=== PATIENT | female | born 1965 | race Caucasian/White ===

== ENCOUNTER 2017-09-07 08:01 | Emergency (ER) | payer OTHER ==
[2017-09-07 08:22] LABS: Bilirubin Negative (Negative); Blood, Urine Large (Negative); Glucose, Urine (Dipstick) Negative (Negative); Ketone, Urine Negative (Negative); Nitrite Negative (Negative); Protein, Urine (Dipstick) Negative (Neg-Trace); Urobilinogen 0.2 mg/dL (0.2-1.0)
[2017-09-07 08:33] LABS: Bacteria/HPF 1+ HPF (None Seen); Hyaline Casts/LPF 0-3 HYALINE CAST LPF (0-3 Hyaline); RBC/HPF 0-3 HPF (0-3)
[2017-09-07 08:34] LABS: Transitional Epithelial 0-3 HPF (0-3)
[2017-09-07] MEDS ORDERED: Ciprofloxacin 500 MG TAB ONE (09:12)
[2017-09-07] MEDS ORDERED: Phenazopyridine HCl 97.5 MG TABLET ONE ×2 (09:12→09:13)
== END 2017-09-07 09:22 | disposition home or self-care (01) ==
LOC: ERS 08:01
DX: N30.00 Acute cystitis without hematuria (principal); I25.10 Atherosclerotic heart disease of native coronary artery without angina pectoris; E78.5 Hyperlipidemia, unspecified; I10 Essential (primary) hypertension; M19.90 Unspecified osteoarthritis, unspecified site; I25.2 Old myocardial infarction; F41.9 Anxiety disorder, unspecified; F17.210 Nicotine dependence, cigarettes, uncomplicated
CPT/HCPCS: 81003; 81015; 87086; 99283

== ENCOUNTER 2018-02-19 00:04 | Observation (INO) | payer OTHER ==
[2018-02-19 00:44] LABS: #Basophils 0.1 thou/uL (0.0-0.2); #Eosinphils 0.2 thou/uL (0.0-0.7); #Lymphocytes 4.1 thou/uL (1.20-3.40); #Neutrophils 5.8 thou/uL (1.40-6.50); %Basophils 1.2 % (0.0-1.0); %Eosinophils 1.7 % (0.0-10.0); %Lymphocytes 36.4 % (21.0-51.0); %Monocytes 9.1 % (0.0-10.0); %Neutrophils 51.7 % (42.0-75.0); Hemoglobin 13.3 g/dL (12.0-16.0); Mean Corpuscular HGB CONC 33.7 g/dL (32.0-36.0); Mean Corpuscular Hemoglobin 32.5 pg (27.0-31.0); Mean Corpuscular Volume 96.4 fl (81.0-99.0); Mean Platelet Volume 6.9 fL (7.4-10.4); Platelet Count 339 thou/uL (130-400); RBC Distribution Width 11.5 % (11.5-14.5); Red Blood Cell (RBC) Count 4.09 mill/uL (4.20-5.40); White Blood Cell (WBC) Count 11.2 thou/uL (4.8-10.8)
[2018-02-19 01:07] LABS: ALT (SGPT) 31 U/L (8-55); AST (SGOT) 28 U/L (5-34); Albumin 4.2 g/dL (3.5-5.0); Alkaline Phosphatase 76 U/L (40-150); Anion Gap 12 mmol/L (10-20); BUN (Urea Nitrogen) 17 mg/dL (9.8-20.1); Bilirubin, Total 0.2 mg/dL (0.2-1.2); CK (CPK) 53 U/L (29-168); Calc. Creatinine Clearance 0 mL/min (70-130); Calcium 9.7 mg/dL (7.8-10.44); Carbon Dioxide 28 mmol/L (22-29); Chloride 102 mmol/L (98-107); Estimated GFR-MDRD 64; Globulin 3.1 g/dL (2.4-3.5); Glucose 86 mg/dL (70-105); Lipase 12 U/L (8-78); Potassium 3.8 mmol/L (3.5-5.1); Protein, Total 7.3 g/dL (6.0-8.3); Sodium 138 mmol/L (136-145)
[2018-02-19 01:09] LABS: CKMB 1.8 ng/mL (0-6.6); Troponin I Less than 0.010 ng/mL (< 0.028)
[2018-02-19] MEDS ORDERED: Nitroglycerin 2% Ointment 1 INCH/1 GM Packet ONE (04:48)
[2018-02-19 05:58] LABS: Troponin I 0.236 ng/mL (< 0.028)
[2018-02-19 06:37] VITALS: BMI 24.2
[2018-02-19] MEDS ORDERED: Nitroglycerin 0.4 MG TAB (25 Tab Bottle) PO PRN (07:40)
[2018-02-19] MEDS ORDERED: Acetaminophen 325 MG TAB PO PRN (07:40)
[2018-02-19] MEDS ORDERED: Bisacodyl 5 MG TAB PO PRN (07:40)
[2018-02-19 08:07] LABS: Cardiac Risk 4.6 (Less than 4.5)
--- NOTE | 2018-02-19 09:43 | RAD ---
CHEST 1 VIEW: HISTORY: Chest pain. COMPARISON: 04/13/17. FINDINGS: Cardiac silhouette magnified by projection. Pulmonary vasculature unremarkable. Mediastinum midline with aortic calcification. No lobar consolidation or evidence of pneumothorax. personnel monitor robinson ds overlie the chest. IMPRESSION: Atherosclerosis. No active cardiopulmonary abnormalities are demonstrated. POS: [facility]
--- NOTE | 2018-02-19 10:57 | HP ---
PRIMARY CARE PROVIDER: None. CHIEF COMPLAINT: Chest pain. HISTORY OF PRESENT ILLNESS: Ms. Harper is a pleasant 52-year-old lady who was seen at [facility] on 02/19/2018. She reports that she had coronary artery disease with stent emily cement 4 or 5 years ago. She stopped taking her medication 3 years ago. Over the last 2 weeks, she had left-sided chest pain, radiating to her jaw, dull, 10/10 at its worst, accompanied by shortness o f breath, diaphoresis, and clamminess, not accompanied by nausea. She came to the emergency room bec ause of ongoing symptoms. She reports that the chest pain is worse with movement, but not with deep breathing. She denies any cough. REVIEW OF SYSTEMS: All other systems reviewed and found to be negative. PAST MEDICAL HISTORY: Hypertension, coronary artery disease, dyslipidemia, arthritis, myocardial inf arction. PAST SURGICAL HISTORY: PCI with coronary stent at [facility] in 07/2012, left wrist s urgery and appendectomy. PSYCHIATRIC HISTORY: Anxiety. SOCIAL HISTORY: The patient reports occasional marijuana use, reports last use was one month ago, sm okes 15-20 cigarettes a day and drinks alcohol occasionally. FAMILY HISTORY: Significant for myocardial infarction in her grandfather. ALLERGIES: PENICILLIN. CURRENT MEDICATIONS: None. PHYSICAL EXAMINATION: GENERAL: Mr. Harper is awake and alert, not in acute distress. VITAL SIGNS: Blood pressure is 104/58, pulse is 82. She is breathing at rate of 18, and saturating 98% on room air. She is afebrile. EYES: No scleral icterus. No conjunctival pallor. ENT: Moist mucosal membranes. No oropharyngeal erythema or exudates. NECK: Supple, nontender, normal range of movement. Trachea is midline. RESPIRATORY: Accessory muscles of breathing are not active. Chest wall movements are symmetric bila terally. LUNGS: Clear to auscultation without wheeze, rhonchi or crepitations. CARDIOVASCULAR: S1 and S2 are heard, regular. Peripheral pulses palpable. No carotid bruit, no per icardial rub. ABDOMEN: Soft, nontender, bowel sounds are heard, no hepatomegaly, no splenomegaly. NEUROLOGIC: Cranial nerves II-XII intact. Deep tendon reflexes 2+. MUSCULOSKELETAL: Power is 5/5 in all 4 extremities. SKIN: She has extensive calluses over both feet. No rashes or subcutaneous nodules. LYMPHATIC: No cervical lymphadenopathy. PSYCHIATRIC: Normal mood, normal affect, patient is oriented to person, place, and time. DATABASE: Mr. Harper' labs and investigations were reviewed. I reviewed her electrocardiogram, wh ich shows normal sinus rhythm, no ST changes to suggest an acute coronary syndrome. I also reviewed her chest x-ray, which does not show any pulmonary infiltrates. She has a white count of 11,200, nor mal hemoglobin, normal platelet count, normal comprehensive metabolic profile, indeterminate troponin I of 0.190 trending down from 0.236 after trending up from less than 0.010. Lipase is normal. The triglycerides are elevated at 214, cholesterol is elevated 210. LDL cholesterol is 121. HDL cholest rozina is 46. ASSESSMENT AND PLAN: Mr. Harper is a pleasant 52-year-old lady who was seen at [facility] on 02/19/2018. Her problem list includes: 1. Chest pain: She will be admitted to the hospital on observation status for telemetry monitoring and stress test. Further management depending on outcome of the test. 2. Hypertension: The patient is currently not on any antihypertensives. Her blood pressure is actu ally on the low side. We will monitor vital signs and titrate antihypertensives as needed. 3. Dyslipidemia: Start statin. 4. Tobacco abuse: The patient has been counseled regarding tobacco cessation. We will start her on nicotine replacement therapy. 5. Recreational drug use: The patient has been counseled against recreational drug use. LEVEL OF RISK: High. LEVEL OF COMPLEXITY: High.
[2018-02-19] MEDS: Nicotine 21 MG PATCH TD SCH (11:21)
[2018-02-19] MEDS: Aspirin 325 MG TAB PO SCH (11:21)
[2018-02-20 04:48] LABS: #Basophils 0.1 thou/uL (0.0-0.2); #Eosinphils 0.2 thou/uL (0.0-0.7); #Monocytes 0.7 thou/uL (0.11-0.59); #Neutrophils 4.4 thou/uL (1.40-6.50); %Eosinophils 2.7 % (0.0-10.0); %Lymphocytes 35.6 % (21.0-51.0); %Monocytes 8.7 % (0.0-10.0); %Neutrophils 51.9 % (42.0-75.0); Hemoglobin 13.9 g/dL (12.0-16.0); Mean Corpuscular HGB CONC 32.5 g/dL (32.0-36.0); Mean Corpuscular Hemoglobin 31.7 pg (27.0-31.0); Mean Corpuscular Volume 97.6 fl (81.0-99.0); Mean Platelet Volume 7.9 fL (7.4-10.4); Platelet Count 308 thou/uL (130-400); RBC Distribution Width 11.4 % (11.5-14.5); Red Blood Cell (RBC) Count 4.38 mill/uL (4.20-5.40); White Blood Cell (WBC) Count 8.4 thou/uL (4.8-10.8)
[2018-02-20 05:20] LABS: Anion Gap 13 mmol/L (10-20); BUN (Urea Nitrogen) 13 mg/dL (9.8-20.1); Calc. Creatinine Clearance 89 mL/min (70-130); Calcium 9.3 mg/dL (7.8-10.44); Carbon Dioxide 22 mmol/L (22-29); Chloride 106 mmol/L (98-107); Estimated GFR-MDRD Greater than 90; Glucose 88 mg/dL (70-105); Potassium 4.1 mmol/L (3.5-5.1); Sodium 137 mmol/L (136-145)
[2018-02-20] MEDS: Aspirin 325 MG TAB PO SCH (08:21)
[2018-02-20] MEDS: Nicotine 21 MG PATCH TD SCH (08:21)
[2018-02-20] MEDS ORDERED: ISOVUE-370 76%-LOCM 1 ML ONE (09:48)
[2018-02-20] MEDS ORDERED: ADENOSINE 60 MG/20 ML VIAL ONE (09:51)
[2018-02-20 11:24] VITALS: BP 136/77; TEMP 97.7
--- NOTE | 2018-02-20 12:01 | NM ---
RADIONUCLIDE STRESS REST MYOCARDIAL PERFUSION SCAN WITH CT ATTENUATION CORRECTION AND SPECT IMAGING LEFT VENTRICULAR WALL MOTION EVALUATION AND EJECTION FRACTION: HISTORY: Chest pain. FINDINGS: Adenosine protocol was used. There is homogeneous uptake of radiotracer throughout the left ventricu lar myocardium. No focal perfusion defect or reversibility. QGS analysis of gated SPECT images show s no focal wall motion abnormalities. Left ventricular ejection fraction calculated at 71%. IMPRESSION: Normal myocardial perfusion scan. Normal left ventricular ejection fraction. POS: [facility]
[2018-02-20] MEDS ORDERED: Lorazepam 0.5 MG TAB PO SCH (14:00)
--- NOTE | 2018-02-20 18:48 | CT ---
CT ANGIOGRAM CHEST WITH CONTRAST: History: Evaluate for pulmonary embolism. Chest pain. Comparison: Chest radiograph same day. Technique: CT angiogram chest performed after the intravenous administration of contrast. 3D renderin g provided. FINDINGS: No proximal segmental pulmonary arterial filling defect. No cardiomegaly. Pulmonary trunk size is normal. No aneurysmal dilatation of the aorta. Visualized upper abdomen is unremarkable aside from atherosclerotic plaque of the aorta. No thoracic spine compression fracture. No rib fracture. Mild to moderate central lobular emphysematous changes. No mass. IMPRESSION: 1. No proximal segmental pulmonary arterial filling defect. 2. Moderate emphysema. 3. Subtle nodule in the posterior segment of the left lower lobe measuring up to [address] eura. Follow up CT in one year recommended. POS: [facility]
--- NOTE | 2018-02-20 22:30 | DIS ---
PRIMARY CARE PROVIDER: [facility]. DATE OF ADMISSION: 02/19/2018 DATE OF DISCHARGE: 02/20/2018 DISCHARGE DIAGNOSES: 1. Chest pain. 2. Dyslipidemia. 3. Lung nodule CONDITION OF PATIENT ON THE DAY OF DISCHARGE: Stable. I assessed Ms. Harper on the day of discharge. She reports that chest pain has improved. Vital signs are stable. S1 and S2 are heard, regular. Lungs are clear to auscultation bilaterally. DISCHARGE MEDICATIONS: Aspirin 81 mg daily, atorvastatin 10 mg daily. HOSPITAL COURSE: Ms. Harper is a pleasant 52-year-old lady, who was admitted to [facility] on 02/19/2018 for chest pain. Please refer to my history and physical note dated 02/19/2018 for further information. She was monitored on telemetry. She had a nuclear stress test, which was normal. Left ventricular ejection fraction was 71%. She also had a D-dimer that was less than 0.27. She was noncompliant with her medications, and has been advised to be compliant with her medications. She has also been advised to stop smoking. She has also been advised to follow up with a primary care provider in 3-5 days for management of her medical comorbidities as well as anxiety. She stated understanding of the importance of medication compliance, tobacco cessation and following up with primary care provider. On the day of discharge, she has white count 8400, hemoglobin 13.9, platelet count 308,000 and a normal Chem-7. During this hospitalization, she had triglycerides elevated at 214, cholesterol elevated at 210, LDL cholesterol 121 , and HDL cholesterol 46. Pt also had CT scan of chest. She did not have evidence of central pulmonary embolism but was found to have a 5mm lung nodule. She is advised to have repeat CT chest in 1 year through her primary care provider's office. Many thanks for allowing me to participate in your patient's care. Please feel free to contact me with any questions or concerns. DISCHARGE DESTINATION: Home. [facility]
== END 2018-02-20 19:41 | disposition home or self-care (01) ==
LOC: ERS 00:04 → 2SW 05:05
PROVIDERS: ADMIT Internal Medicine; ATTEND Internal Medicine
DX: R07.9 Chest pain, unspecified (principal); I25.10 Atherosclerotic heart disease of native coronary artery without angina pectoris; I10 Essential (primary) hypertension; E78.5 Hyperlipidemia, unspecified; M19.90 Unspecified osteoarthritis, unspecified site; I25.2 Old myocardial infarction; F17.210 Nicotine dependence, cigarettes, uncomplicated; F41.9 Anxiety disorder, unspecified; R91.1 Solitary pulmonary nodule; Z91.14 Patient's other noncompliance with medication regimen; Z88.0 Allergy status to penicillin; Z95.5 Presence of coronary angioplasty implant and graft
CPT/HCPCS: 36415; 71045; 71275; 78452; 80048; 80053; 80061; 82553; 83690; 84484; 85025; 85379; 93005; 93017; 94760; A9500; G0378; J0153

== ENCOUNTER 2018-08-16 17:40 | Emergency (ER) | payer OTHER ==
[2018-08-16] MEDS ORDERED: Ketorolac Tromethamine 30 MG/ML VIAL ONE (18:28)
[2018-08-16 19:05] LABS: #Basophils 0.1 thou/uL (0.0-0.2); #Eosinphils 0.1 thou/uL (0.0-0.7); #Lymphocytes 3.2 thou/uL (1.20-3.40); #Monocytes 0.8 thou/uL (0.11-0.59); #Neutrophils 7.5 thou/uL (1.40-6.50); %Basophils 1.1 % (0.0-1.0); %Eosinophils 0.8 % (0.0-10.0); %Lymphocytes 27.5 % (21.0-51.0); %Monocytes 7.1 % (0.0-10.0); %Neutrophils 63.5 % (42.0-75.0); Hemoglobin 12.9 g/dL (12.0-16.0); Mean Corpuscular Hemoglobin 32.2 pg (27.0-31.0); Mean Corpuscular Volume 97.6 fL (78.0-98.0); Mean Platelet Volume 8.5 fL (7.4-10.4); Platelet Count 377 thou/uL (130-400); RBC Distribution Width 11.7 % (11.5-14.5); White Blood Cell (WBC) Count 11.7 thou/uL (4.8-10.8)
[2018-08-16 19:22] LABS: Prothrombin Time 13.6 SEC (12.0-14.7)
[2018-08-16] MEDS ORDERED: Lorazepam 2 MG/ML VIAL ONE (20:46)
[2018-08-16] MEDS ORDERED: Morphine 2 MG/ML SYRINGE ONE (20:46)
[2018-08-16] MEDS ORDERED: Lorazepam 1 MG TAB ONE (20:47)
[2018-08-16 21:19] LABS: ALT (SGPT) 21 U/L (8-55); AST (SGOT) 26 U/L (5-34); Alkaline Phosphatase 88 U/L (40-150); Anion Gap 18 mmol/L (10-20); BUN (Urea Nitrogen) 10 mg/dL (9.8-20.1); Bilirubin, Total 0.3 mg/dL (0.2-1.2); Calc. Creatinine Clearance 0 mL/min (70-130); Calcium 9.9 mg/dL (7.8-10.44); Carbon Dioxide 20 mmol/L (22-29); Chloride 103 mmol/L (98-107); Estimated GFR-MDRD 87; Globulin 4.2 g/dL (2.4-3.5); Glucose 111 mg/dL (70-105); Potassium 4.1 mmol/L (3.5-5.1); Protein, Total 8.2 g/dL (6.0-8.3); Sodium 137 mmol/L (136-145)
--- NOTE | 2018-08-16 21:34 | RAD ---
PA AND LATERAL CHEST: 08/16/18 HISTORY: Right breast pain and swelling. The heart size and mediastinum are within normal limits. The lungs are clear of any infiltrative proc ess. No pulmonary nodules are identified. No bony findings. IMPRESSION: No active intrathoracic disease. Suggestion of some soft tissue swelling of the right breast is noted . POS: [facility]
--- NOTE | 2018-08-16 22:22 | ULT ---
ULTRASOUND RIGHT BREAST COMPLETE: 08/16/18 7:26 p.m. HISTORY: 53-year-old female with growing right breast mass for a long period of time, now painful presents to the emergency department. COMPARISON: No prior breast ultrasound. No recent mammograms are available for comparison. FINDINGS: There is a very large infiltrative hard mass occupying the upper 40% or half of the breast, from the 11 o'clock position to the 1 o'clock position, and from the nipple to 6 cm posterior and superior to the nipple. The entire mass cannot be measured because the extent of the lesion is greater than that of the transducer width. However, the largest region of shadowing hypoechoic component is measured as approximately 4.5 x 3.5 x 3 cm, but the measurements are imprecise because of ill-defined margins. Somewhat enlarged right axillary lymph node measuring approximately 2 x 1.3 cm. It has a fatty hilum, but one component of the nonfatty component is asymmetrically thickened. IMPRESSION: 1. BIRADS 0: Incomplete: Need Additional Imaging Evaluation and/or Prior Mammograms for Compari son 2. Very large mass in the upper aspect of the right breast, involving upper outer quadrant and u pper inner quadrant, highly suspicious for invasive breast cancer. 3. Recommend mammogram. 4. The mammogram should be obtained prior to breast biopsy. POS: [facility]
== END 2018-08-16 21:08 | disposition home or self-care (01) ==
LOC: ERS 17:40
DX: N63.0 Unspecified lump in unspecified breast (principal); I10 Essential (primary) hypertension; I25.10 Atherosclerotic heart disease of native coronary artery without angina pectoris; E78.5 Hyperlipidemia, unspecified; I25.2 Old myocardial infarction; F41.9 Anxiety disorder, unspecified; F17.210 Nicotine dependence, cigarettes, uncomplicated
CPT/HCPCS: 36415; 71046; 80053; 84484; 85025; 85610; 85730; 93005; 96374; 96375; J1885; J2060; J2270

== ENCOUNTER 2018-11-22 14:31 | Emergency (ER) | payer OTHER ==
[~2018-11-22 14:31] MED LIST: Iopamidol 370 76% 100 ML VIAL ONE
[2018-11-22] MEDS ORDERED: Ketorolac Tromethamine 30 MG/ML VIAL ONE (15:22)
[2018-11-22] MEDS ORDERED: diphenhydrAMINE 50 MG/ML VIAL ONE (15:22)
[2018-11-22] MEDS ORDERED: Metoclopramide HCl 10 MG/2 ML VIAL ONE (15:22)
[2018-11-22 15:31] LABS: Hemoglobin 12.8 g/dL (12.0-16.0); Mean Corpuscular HGB CONC 31.6 g/dL (32.0-36.0); Mean Corpuscular Hemoglobin 30.9 pg (27.0-31.0); Mean Corpuscular Volume 97.7 fL (78.0-98.0); Mean Platelet Volume 8.9 fL (7.4-10.4); Platelet Count 153 thou/uL (130-400); RBC Distribution Width 11.5 % (11.5-14.5); Red Blood Cell (RBC) Count 4.16 mill/uL (4.20-5.40); White Blood Cell (WBC) Count 9.9 thou/uL (4.8-10.8)
[2018-11-22 15:48] LABS: Band 12 % (5-11); Eosinophils 2 % (0-10); Lymphocytes 10 % (21-51); MDiff Complete? YES; Neutrophil 74 % (42-75); Platelet Morphology Comment Appears Adequate; RBC Morphology Normal; Reactive Lymphocytes 2 % (0-10)
[2018-11-22 15:54] LABS: ALT (SGPT) 36 U/L (8-55); AST (SGOT) 30 U/L (5-34); Albumin 3.7 g/dL (3.5-5.0); Alkaline Phosphatase 108 U/L (40-150); Anion Gap 7 mmol/L (10-20); BUN (Urea Nitrogen) 16 mg/dL (9.8-20.1); Bilirubin, Total 0.6 mg/dL (0.2-1.2); Calc. Creatinine Clearance 0 mL/min (70-130); Calcium 9.7 mg/dL (7.8-10.44); Carbon Dioxide 32 mmol/L (22-29); Chloride 101 mmol/L (98-107); Estimated GFR-MDRD Greater than 90; Globulin 2.9 g/dL (2.4-3.5); Glucose 104 mg/dL (70-105); Potassium 3.9 mmol/L (3.5-5.1); Protein, Total 6.6 g/dL (6.0-8.3); Sodium 136 mmol/L (136-145)
--- NOTE | 2018-11-22 16:01 | CT ---
CT BRAIN WITHOUT CONTRAST: Date: 11/22/18 HISTORY: Headache. FINDINGS: Comparison made with exam of 08/25/13. No evidence of infarct, hemorrhage, midline shift, or abnormal extra-axial fluid collections are seen . The ventricular size is normal and the basilar cisterns are patent. There are changes of mild chron ic small vessel ischemic disease. The bony calvarium is intact. The visualized paranasal sinuses and mastoid air cells are well aerated. IMPRESSION: No CT evidence of acute intracranial process. POS: [facility]
--- NOTE | 2018-11-22 17:57 | CT ---
CT ANGIOGRAM OF THE HEAD WITH CONTRAST 11/22/18 HISTORY: Aneurysm. COMPARISON: CT brain 2019. FINDINGS: CT angiogram of the brain was performed after the intravenous administration of contrast. 3D renderin g was provided. [place] is patent. The right MCA trifurcation at the junction of M1 and M2 i s a 4 mm in transverse x 5 mm in craniocaudal dimension aneurysm. Remainder of the [place] of [place] i s without stenosis, thrombosis or aneurysm formation. IMPRESSION: 1. 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 2. Mild bimaxillary sinusitis. POS: [facility]
== END 2018-11-22 17:49 | disposition home or self-care (01) ==
LOC: ERS 14:31
DX: R51 Headache (principal); I10 Essential (primary) hypertension; I25.10 Atherosclerotic heart disease of native coronary artery without angina pectoris; E78.5 Hyperlipidemia, unspecified; F41.9 Anxiety disorder, unspecified; Z79.899 Other long term (current) drug therapy
CPT/HCPCS: 70450; 70496; 80053; 84484; 85025; 93005; 96365; 96375; J1200; J1885; J2765; Q9967

== ENCOUNTER 2019-01-09 16:01 | Inpatient (IN) | payer OTHER ==
[2019-01-09 18:06] LABS: Hemoglobin 9.5 g/dL (12.0-16.0); Mean Corpuscular HGB CONC 32.7 g/dL (32.0-36.0); Mean Corpuscular Hemoglobin 32.8 pg (27.0-31.0); RBC Distribution Width 15.3 % (11.5-14.5); Red Blood Cell (RBC) Count 2.89 mill/uL (4.20-5.40); White Blood Cell (WBC) Count 9.5 thou/uL (4.8-10.8)
[2019-01-09 18:29] LABS: ALT (SGPT) 21 U/L (8-55); AST (SGOT) 17 U/L (5-34); Albumin 3.6 g/dL (3.5-5.0); Alkaline Phosphatase 140 U/L (40-150); Anion Gap 12 mmol/L (10-20); BUN (Urea Nitrogen) 14 mg/dL (9.8-20.1); Bilirubin, Total 0.2 mg/dL (0.2-1.2); Calc. Creatinine Clearance 0 mL/min (70-130); Calcium 9.3 mg/dL (7.8-10.44); Carbon Dioxide 24 mmol/L (22-29); Chloride 104 mmol/L (98-107); Estimated GFR-MDRD Greater than 90; Glucose 104 mg/dL (70-105); Potassium 3.7 mmol/L (3.5-5.1); Protein, Total 6.6 g/dL (6.0-8.3); Sodium 136 mmol/L (136-145)
[2019-01-09 18:30] LABS: #Lymphocytes 2.2 thou/uL (1.20-3.40); #Monocytes 0.8 thou/uL (0.11-0.59); #Neutrophils 6.5 thou/uL (1.40-6.50); %Basophils 0.4 % (0.0-1.0); %Eosinophils 0.3 % (0.0-10.0); %Lymphocytes 23.3 % (21.0-51.0); %Monocytes 8.1 % (0.0-10.0); %Neutrophils 67.8 % (42.0-75.0); Anisocytosis SLIGHT = 6-15 cells (100X) (0-5/hpf); Dohle Bodies SLIGHT; MDiff Complete? YES; Mean Platelet Volume 8.6 fL (7.4-10.4); Platelet Count 114 thou/uL (130-400); Platelet Morphology Comment Appears Decreased
[2019-01-09] MEDS ORDERED: diphenhydrAMINE 25 MG CAP ONE (19:25)
[2019-01-09] MEDS ORDERED: cefTRIAXone\\ROCEPHIN 2 GM VIAL ONE ×2 (20:00→20:01)
[2019-01-09 23:01] VITALS: BMI 22.9
[2019-01-10] MEDS: Famotidine 20 MG TAB PO SCH (00:24)
[2019-01-10] MEDS ORDERED: Dexamethasone 4 MG TAB PO PRN (08:16)
[2019-01-10] MEDS: Aspirin 81 mg Enteric Coated Tablet PO SCH (09:27)
[2019-01-10] MEDS: HYDROcodone/Acetaminophen 7.5/325 mg Tablet PO PRN (09:28)
[2019-01-10 10:44] LABS: Hemoglobin 8.5 g/dL (12.0-16.0); Mean Corpuscular HGB CONC 32.4 g/dL (32.0-36.0); Mean Corpuscular Hemoglobin 32.2 pg (27.0-31.0); Mean Corpuscular Volume 99.2 fL (78.0-98.0); Mean Platelet Volume 8.5 fL (7.4-10.4); Platelet Count 112 thou/uL (130-400); RBC Distribution Width 15.3 % (11.5-14.5); Red Blood Cell (RBC) Count 2.65 mill/uL (4.20-5.40); White Blood Cell (WBC) Count 7.9 thou/uL (4.8-10.8)
[2019-01-10] MEDS ORDERED: Acetaminophen 325 MG TAB PO PRN (11:01)
[2019-01-10] MEDS ORDERED: Ondansetron ODT 4 MG TAB PO PRN (11:01)
[2019-01-10] MEDS ORDERED: Ondansetron PF 4 MG/2 ML Vial IVP PRN (11:01)
[2019-01-10 12:15] LABS: Band 14 % (5-11); Lymphocytes 14 % (21-51); MDiff Complete? YES; Monocytes 6 % (0-10); Neutrophil 66 % (42-75); Platelet Morphology Comment Appears Decreased; Polychromasia SLIGHT = 2-3 cells (100X) (0-2/hpf)
[2019-01-10] MEDS: Lorazepam 0.5 MG TAB PO SCH ×2 (13:49→21:00)
[2019-01-10] MEDS ORDERED: cefTRIAXone\\ROCEPHIN 1 GM in Sodium Chloride 0.9% 100 ML IVPB SCH (20:30)
--- NOTE | 2019-01-11 00:11 | HP ---
PRIMARY CARE PHYSICIAN: None. CHIEF COMPLAINT: Rash, status post chemotherapy. HISTORY OF PRESENT ILLNESS: Mrs. Harper is a 53-year-old female with a past medical history of hypertension, hyperlipidemia, breast cancer currently undergoing chemotherapy, who had presented to [facility] after she experience a worsening of her rash that appeared on her left arm, right arm, back, head, neck, and her lower extremities. She states that these symptoms started status post chemotherapy, she was treated with oral dexamethasone, however, noticed that the symptoms worsened on this past Wednesday. She had felt localized warmth and pain around the area. She reports diffuse ulcer like rash appear all over body. She was given IV ceftriaxone, 1 L of IV normal saline along with 25 mg of oral diphenhydramine as needed for her itchiness. She states that this had slightly improved her symptoms. It was also noted that she underwent a CTA of her head last month, 11/22/2018, which had found the right MCA trifurcation junction of M1/M2 of 4 x 5 mm transverse 5 mL saccular aneurysm noted. She was recommended to follow up with a neurologist; however, she had denied any followup at this time. She, however, reports headache since this time. She states she usually notices a headache daily and however does not think anything of it. She had denied any chest pain, palpitations, shortness of breath, abdominal pain, nausea, vomiting. She had denied any fever or chills, but does report this worsening rash. Plan is to consult Dr. Negrete for further evaluation of this rash to rule out cellulitis and consult placed for Neurosurgery for further evaluation of this fairly new brain aneurysm. REVIEW OF SYSTEMS: All other systems reviewed and found to be negative unless mentioned in the HPI. PAST MEDICAL HISTORY: Significant for breast cancer treated with chemotherapy, hypertension, hyperlipidemia, arthritis. Past medical history of myocardial infarction and brain aneurysm noted on CTA, 11/22/2018. PAST SURGICAL HISTORY: Significant for appendectomy, cardiac stent on July 27, 2012, and left wrist surgery. PAST PSYCHIATRIC HISTORY: Significant for anxiety; however, she had denied any suicidal ideation. SOCIAL HISTORY: Denies any alcohol use. She states that she was a former cocaine and marijuana user, however, denies any use at this time. She states that she smokes about a half pack per day. KNOWN ALLERGIES: Penicillins. CURRENT HOME MEDICATIONS: 1. Aspirin 81 mg daily. 2. Lorazepam 0.5 mg p.o. q.8 hours as needed for anxiety. 3. Hydrocodone 7.5/325 tablet p.o. q.6 hours p.r.n. pain. 4. Dexamethasone 4 mg p.o. daily p.r.n. rash and itching. 5. Zofran 8 mg p.o. q.8 hours p.r.n. nausea. PHYSICAL EXAMINATION: VITAL SIGNS: Blood pressure 140/67, pulse 103, respirations 20, temperature 98.0 degrees Fahrenheit, O2 saturations 97% on room air. GENERAL: The patient is awake, alert, and oriented x3. She is currently sitting up in bed and in no acute distress at this time. HEENT: Atraumatic, normocephalic. Pupils are round and reactive to light. Extraocular muscles intact. Moist mucous membranes noted. She has diffuse ulcerative like rash in the posterior neck and scalp. NECK: Soft and supple. Trachea midline. CARDIOVASCULAR: Positive S1 and S2. Regular rate and rhythm. No murmur auscultated. RESPIRATORY: Clear to auscultation bilaterally. No wheezes, rales, or rhonchi. ABDOMEN: Soft and nontender. Bowel sounds present. MUSCULOSKELETAL: Strength 5+ bilaterally upper and lower extremities. Moves all extremities equal. No edema noted. PSYCHIATRIC: Cranial nerves II through XII grossly intact. No focal deficits noted. Speech intact and normal. Gait not assessed. SKIN: Warm and dry. Diffuse ulcerative like rash noted on left upper extremity, right upper extremity, posterior scalp and neck along with bilateral lower extremities, surrounding erythema and induration noted with no further drainage or fluctuation noted. PSYCHIATRIC: Good mood and affect. LABORATORY DATA: WBC 7.9, RBC 2.65, hemoglobin 8.5, platelet 112. Sodium 136, potassium 3.7, anion gap 12, BUN 14, creatinine 0.65, estimated GFR greater than 90, lactic acid 1.1, glucose 104. DIAGNOSTIC IMAGING: CTA of head without contrast dated back to 11/22/2018, showed a right MCA trifurcation junction of M1/M2 for a 4 x 5 mm transverse 5 mL saccular aneurysm with mild bimaxillary sinusitis noted. ASSESSMENT AND PLAN: 1. Rash, due to suspicion of a cellulitic like rash, status post chemotherapy. The patient will be placed on IV antibiotics including ceftriaxone and doxycycline at this time. Blood culture showing no growth at this time. Dr. Negrete will be consulted for further evaluation. Due to concern for an infectious like process, home dose of her dexamethasone will be held at this time until further evaluation. 2. New brain aneurysm found on 11/22/2018, the patient reports has not seen anyone for this, further consult placed for Neurosurgery Services at this time. However, due to patient's current situation, she will likely need to be observed with further repeat testing in the near future for close monitoring. 3. History of hypertension, currently stable at this time. Continue on patient's home regimen. 4. Hyperlipidemia. Continue home medications. 5. History of anxiety. Continue on patient's home regimen. 6. History of breast cancer, currently on chemotherapy, she will start her next round of chemotherapy in the next 1 to 2 weeks. She reports seeing a Dr. Jenkins in [place] for chemotherapy treatments. 7. Deep venous thrombosis and gastrointestinal prophylaxis. CODE STATUS: 1. Full code. 2. Surrogate decision maker is her mother, Dalila Harper. DISPOSITION: Pending further workup and further clinical findings. She reports seeing Dr. Juarez one time, however states that she has not seen him since and had reported that she needs a PCP to follow up with as outpatient. Job ID: [id number]
--- NOTE | 2019-01-11 00:19 | CON ---
DATE OF CONSULTATION: 01/10/2019 REASON FOR CONSULTATION: Skin lesions. HISTORY OF PRESENT ILLNESS: A 53-year-old who has a history of coronary artery disease with prior MT as well as a recently diagnosed breast cancer, at least locally advanced with lymph node metastasis, but no other distant metastasis. She has been initiated on chemotherapy elsewhere and she has noticed about a 50% reduction in the size of the mass since. She started chemotherapy, she has noticed severe pruritus with self-excoriation. This time, she comes in because of concern with possible cellulitis around some of the lesions. Currently, she is still having pruritus and has been given antimicrobial therapy. No headaches. No visual symptoms, sore throat, odynophagia, dysphagia, no back pain, no shortness of breath, no cough or sputum production, no abdominal pain or diarrhea. No genitourinary symptoms. No joint symptoms. PAST MEDICAL HISTORY: 1. Coronary artery disease. 2. Myocardial infarction. 3. Breast cancer, right side stage T3 N1 M0, currently on chemotherapy, I believe on 3 or 4 different drugs including carboplatin, trastuzumab and a third drug. SOCIAL HISTORY: She used to consume cocaine in the past. No IV drug use. 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 Current smoker. ALLERGIES: PENICILLIN. FAMILY HISTORY: Noncontributory. CURRENT MEDICATIONS: 1. Tylenol. 2. [place]. 3. Ecotrin. 4. Ceftriaxone. 5. Doxycycline. 6. Pepcid. 7. Lorazepam. PHYSICAL EXAMINATION: VITAL SIGNS: T-max 98.8, blood pressure 130/60, pulse 112, respirations 20, O2 saturation 97%. GENERAL: Appears in no distress. SKIN EXAM: Shows areas of prurigo nodularis in the upper and lower extremities and the upper back area. Peripheral IV access. No Scott catheter. HEENT: Ocular movements conjugate. Oral cavity normal although she has numerous missing teeth. NECK: Supple. No jugular venous distention. LUNGS: With symmetric clear breath sounds. No thyromegaly. HEART: S1 and S2. Regular rate. No S3 or S4. ABDOMEN: Soft, not distended or tender. No ascites. No bladder distention. EXTREMITIES: No joint inflammatory activity. Pulses 1+ in dorsalis pedis. ASSESSMENT: 1. Coronary artery disease and recently diagnosed T3 N1 M0 breast cancer, on chemotherapy at this moment. 2. Skin eruption consistent with prurigo nodularis. DISCUSSION AND PLAN: Prurigo nodularis is a well-known adverse reaction to certain chemotherapeutic agents. Basically it reflects a sensation of pruritus. The skin lesions are actually self-induced by the patient scratching herself and it is noticeable how the areas that are not accessible to the hands such as the back area are spared from the lesions. I would not recommend antimicrobial therapy for this problem. She will need skin emollients, try Aveeno bath before going to bed at night as well as chronic intake of antihistaminics, may need Neurontin as well in addition to the above. Since she does have a history of methamphetamine use in the past, it is another concern that she might have started using it again which meth can be clearly associated with prurigo. Job ID: [id number]
[2019-01-11 06:24] LABS: #Lymphocytes 2.1 thou/uL (1.20-3.40); #Monocytes 0.5 thou/uL (0.11-0.59); #Neutrophils 4.5 thou/uL (1.40-6.50); %Basophils 0.5 % (0.0-1.0); %Eosinophils 0.2 % (0.0-10.0); %Lymphocytes 29.1 % (21.0-51.0); %Monocytes 7.5 % (0.0-10.0); %Neutrophils 62.8 % (42.0-75.0); Hemoglobin 8.5 g/dL (12.0-16.0); Mean Corpuscular HGB CONC 32.6 g/dL (32.0-36.0); Mean Platelet Volume 8.1 fL (7.4-10.4); Platelet Count 102 thou/uL (130-400); RBC Distribution Width 15.9 % (11.5-14.5); Red Blood Cell (RBC) Count 2.56 mill/uL (4.20-5.40); White Blood Cell (WBC) Count 7.1 thou/uL (4.8-10.8)
[2019-01-11 06:30] LABS: Anion Gap 10 mmol/L (10-20); BUN (Urea Nitrogen) 7 mg/dL (9.8-20.1); Calc. Creatinine Clearance 99 mL/min (70-130); Calcium 8.9 mg/dL (7.8-10.44); Carbon Dioxide 24 mmol/L (22-29); Chloride 110 mmol/L (98-107); Estimated GFR-MDRD Greater than 90; Glucose 95 mg/dL (70-105); Potassium 3.1 mmol/L (3.5-5.1); Sodium 141 mmol/L (136-145)
[2019-01-11] MEDS: Lorazepam 0.5 MG TAB PO SCH ×3 (06:36→21:40)
[2019-01-11] MEDS: HYDROcodone/Acetaminophen 7.5/325 mg Tablet PO PRN ×2 (09:27→17:09)
[2019-01-11] MEDS: Aspirin 81 mg Enteric Coated Tablet PO SCH (09:27)
[2019-01-11] MEDS: Famotidine 20 MG TAB PO SCH ×2 (09:29→21:40)
[2019-01-11] MEDS ORDERED: Potassium Chloride 20 MEQ TAB PO SCH (11:30)
--- NOTE | 2019-01-11 12:54 | PRG ---
DATE OF SERVICE: 01/11/2019 SUBJECTIVE: The patient is seen and examined at bedside. She is still complaining about a lot of itching. She scratches her skin all over her body. OBJECTIVE: VITAL SIGNS: Blood pressure is 136/66, pulse is 98, temperature is 98.3, respirations are 18, O2 saturations is 97% on room air. HEENT: Head is atraumatic, normocephalic. Her scalp is shaved. Pupils responding to light properly. Sclerae are nonicteric. Oral mucosa is moist. NECK: Supple. LUNGS: Clear. HEART: S1, S2 normal. No S3. No S4. No any murmur. ABDOMEN: Soft, nontender, nondistended. EXTREMITIES: No clubbing, cyanosis, or edema. SKIN: She has multiple open areas over her lower upper and torso extremities. She does not have them on the back. LABORATORY DATA: Labs showed a white count of 7.1, hemoglobin is 8.5, hematocrit is 25.9, platelet count is 102. Sodium of 141, potassium of 3.1, chloride of 110, BUN of 7, creatinine of 0.55. The rest of chemistry within normal limits. Microbiology, blood cultures x2 negative. IMPRESSION: 1. A rash, which is felt to be nodularis, and as per Dr. Negrete' consultation, we are going to stop both antibiotics as recommended, ID. We will start her on Benadryl 12.5 mg every 6 hours p.r.n. p.o. The dose is decreased to avoid sedation. 2. Hypertension. 3. Hyperlipidemia. 4. History of anxiety. 5. History of breast cancer, currently on chemotherapy scheduled in the next 1 to 2 weeks in [place]. 6. Brain aneurysm on the CT angiogram and follow up with Neurosurgery to be set up. The patient is aware of the need to do so. DISCUSSION: Apparently, the patient used to use methamphetamines and this could be another reason why she has so much prurigo. So, we are going to do USD on her urine. We will start her on Benadryl. We will supplement her potassium since her potassium is down to 3.1 today. I will check her magnesium level too since she is on active chemotherapy. She might be low on her magnesium level too. Job ID: [id number]
[2019-01-11] MEDS: diphenhydrAMINE 12.5 MG/5 ML UDCUP PO PRN (13:10)
[2019-01-12] MEDS: Lorazepam 0.5 MG TAB PO SCH ×3 (06:01→21:00)
[2019-01-12 06:16] LABS: Anion Gap 11 mmol/L (10-20); BUN (Urea Nitrogen) 10 mg/dL (9.8-20.1); Calc. Creatinine Clearance 94 mL/min (70-130); Calcium 8.9 mg/dL (7.8-10.44); Carbon Dioxide 24 mmol/L (22-29); Chloride 106 mmol/L (98-107); Estimated GFR-MDRD Greater than 90; Glucose 126 mg/dL (70-105); Potassium 3.2 mmol/L (3.5-5.1); Sodium 138 mmol/L (136-145)
[2019-01-12 06:40] LABS: Amphetamine Detected (NotDetected); Barbiturates Screen Not Detected (NotDetected); Benzodiazepine Screen Detected (NotDetected); Cocaine Metabolite Screen Not Detected (NotDetected); Medtox Control Line Valid? VALID (VALID); Medtox Reader # READER 4; Methadone Not Detected (NotDetected); Methamphetamine Detected (NotDetected); Opiate Screen Detected (NotDetected); Oxycodone Screen Not Detected (NotDetected); Phencyclidine (PCP) Not Detected (NotDetected); THC/Cannabinoid Screen Not Detected (NotDetected); Tricyclic Screen Not Detected (NotDetected)
[2019-01-12] MEDS: Famotidine 20 MG TAB PO SCH ×2 (07:46→20:58)
[2019-01-12] MEDS: HYDROcodone/Acetaminophen 7.5/325 mg Tablet PO PRN ×3 (07:47→23:43)
[2019-01-12] MEDS: Aspirin 81 mg Enteric Coated Tablet PO SCH (07:48)
--- NOTE | 2019-01-12 12:30 | PRG ---
DATE OF SERVICE: 01/12/2019 SUBJECTIVE: The patient was seen and examined at the bedside. Her skin itching is somewhat better after she tried some Benadryl. Her appetite is good. OBJECTIVE: VITAL SIGNS: Blood pressure is 149/72, pulse is 107, temperature is 98.2, respirations 18, and O2 saturation is 98% on room air. HEENT: Her head is atraumatic and normocephalic. Eyes are PERRLA. Sclerae are nonicteric. Oral mucosa is moist. NECK: Supple. No lymphadenopathy. Thyroid is not palpable. LUNGS: Clear. HEART: S1 and S2 normal. No S3. No S4. No any murmur. ABDOMEN: Soft, nontender, and nondistended. Bowel sounds are present. No organomegaly. EXTREMITIES: No clubbing, cyanosis, or edema. NEUROLOGIC: She is alert and oriented x4. There is no any motor or sensory deficit present. Cranial nerves are intact. SKIN: Multiple open areas over her lower and upper extremities and trunk. None on her back. LABORATORY DATA: Labs showed sodium of 138, potassium 3.2, chloride 106, CO2 of 24, BUN 10, creatinine 0.58, glucose 126, and calcium 8.9. Screening is positive for opioids, methamphetamines, and benzodiazepines. IMPRESSION: 1. Prurigo nodularis, improved with Benadryl. 2. Hypokalemia, recurrent. We will check her magnesium level this morning and replace her with 40 mEq of KCl x2 today. She had one dose yesterday, but this is not enough. She is much more depleted than what I thought. This is most likely related to her chemotherapy. 3. Hypertension. 4. Hyperlipidemia. 5. History of anxiety. 6. History of breast cancer. Currently, on chemotherapy, scheduled in the next 1 to 2 weeks in [place]. 7. Brain aneurysm on the CT angiogram, to be followed with Neurosurgery after she is discharged from the hospital. DISCUSSION: Her urine drug screen confirmed that she is positive for amphetamines and this could be one reason to have itching of her skin. We will discuss with her current findings. As mentioned above, we are going to replace her potassium and check her magnesium level today. She should be able to go home tomorrow after her levels are in good range and confirmed. Job ID: [id number]
[2019-01-12] MEDS: Potassium Chloride 20 MEQ TAB PO SCH ×2 (13:52→18:06)
[2019-01-12] MEDS: diphenhydrAMINE 12.5 MG/5 ML UDCUP PO PRN (18:22)
[2019-01-13] MEDS: Lorazepam 0.5 MG TAB PO SCH (06:10)
[2019-01-13 08:14] VITALS: BP 142/68; TEMP 98.2
[2019-01-13] MEDS: Famotidine 20 MG TAB PO SCH (09:00)
[2019-01-13] MEDS: HYDROcodone/Acetaminophen 7.5/325 mg Tablet PO PRN (09:00)
[2019-01-13] MEDS: Aspirin 81 mg Enteric Coated Tablet PO SCH (09:00)
[2019-01-13] MEDS ORDERED: Magnesium Sulfate 4 GM in Sodium Chloride 0.9% 250 ML 250 ML IVPB SCH (10:30)
[2019-01-13 12:09] LABS: Anion Gap 12 mmol/L (10-20); BUN (Urea Nitrogen) 10 mg/dL (9.8-20.1); Calc. Creatinine Clearance 101 mL/min (70-130); Calcium 9.2 mg/dL (7.8-10.44); Carbon Dioxide 25 mmol/L (22-29); Chloride 104 mmol/L (98-107); Estimated GFR-MDRD Greater than 90; Glucose 76 mg/dL (70-105); Potassium 3.9 mmol/L (3.5-5.1); Sodium 137 mmol/L (136-145)
--- NOTE | 2019-01-13 16:44 | DIS ---
DATE OF ADMISSION: 01/10/2019 DATE OF DISCHARGE: 01/13/2019 FINAL DIAGNOSES: At the time of discharge, 1. Cellulitis which turned out to be prurigo nodularis. 2. Recurrent hypokalemia. 3. Severe hypomagnesemia. 4. Positive drug screening test for methamphetamines. 5. Hypertension. 6. Hyperlipidemia. 7. Brain aneurysm on the CT angiogram, to be followed with Neurosurgery after the discharge from the hospital. 8. History of breast cancer, currently on chemotherapy scheduled in the next seven days for the next round of chemo in [place]. 9. History of anxiety. CONSULTANTS: Dr. Dudley Negrete, Infectious Disease Service. HOSPITAL COURSE: The patient was a 53-year-old female, who was admitted to the hospital for ulcer-like rash all over her body. The patient is a breast cancer patient, who is receiving chemotherapy treatment, periodically, not very clear what was the cause of this rash, so the patient was started on ceftriaxone and got admitted to the hospital. Also, she underwent CT angiogram of her head on November 22, 2018 and she was found to have right MCA trifurcation, simply saying, saccular aneurysm 5 x 5 mm. She was recommended to follow up with neurologist. On admission, her white count was 7.9, hemoglobin was 8.5, and platelet count 112. Sodium 136, potassium 3.7, BUN 14, and creatinine 0.65. Lactic acid 1.1 and glucose was 104. The patient was placed on ceftriaxone and doxycycline. The patient was seen by Dr. Negrete for Infectious Disease evaluation. He felt that this is most likely related to so called prurigo nodularis, quite typical lesions, then the itching which is known in cancer patients on chemotherapy, so the antibiotics were stopped and she was tried on Benadryl with some improvement. Also, because of her quite profound hypomagnesemia and hypokalemia, she required multiple doses of potassium and magnesium. Clinically, she is doing well. Her urine drug screen came back positive for benzodiazepines, methamphetamines, amphetamines, and opioids, was consulted about using drugs and she is planning to stop using amphetamines and methamphetamines. She received magnesium IV and her potassium is replaced at this point and she is doing well. She is going to be discharged home. She was seen and examined before she is discharged. Her blood pressure at the time of discharge is 142/68, pulse is 100, and respiratory rate is 18, O2 saturation is 99%, and temperature is 98.2. She has a discharge recommendation to stay on regular diet. ACTIVITIES: As tolerated. MEDICATIONS: At the time of discharge, 1. Magnesium oxide 400 mg twice a day. 2. Potassium chloride 10 mEq once a day. 3. Aspirin 81 mg once a day. 4. Dexamethasone p.r.n. 5. Hydrocodone bitartrate p.r.n. 6. Lorazepam p.r.n., and Zofran p.r.n. at the time of chemotherapy treatments. FOLLOWUP: The patient is going to follow up with Dr. Juarez, her primary care physician in 1 week and follow up with neurologist regarding her brain aneurysm. Job ID: [id number]
== END 2019-01-13 15:35 | disposition home or self-care (01) | DRG 607 ==
LOC: ERS 16:01 → ONC 19:50 → OBSVTOIN 01-10 11:03
PROVIDERS: ADMIT Hospitalist; ATTEND Hospitalist
DX: L28.1 Prurigo nodularis (principal); E87.6 Hypokalemia; E83.42 Hypomagnesemia; I10 Essential (primary) hypertension; E78.5 Hyperlipidemia, unspecified; I67.1 Cerebral aneurysm, nonruptured; F41.9 Anxiety disorder, unspecified; C50.919 Malignant neoplasm of unspecified site of unspecified female breast; M19.90 Unspecified osteoarthritis, unspecified site; F17.210 Nicotine dependence, cigarettes, uncomplicated; I25.10 Atherosclerotic heart disease of native coronary artery without angina pectoris; I25.2 Old myocardial infarction; Z92.21 Personal history of antineoplastic chemotherapy; Z71.51 Drug abuse counseling and surveillance of drug abuser; Z90.49 Acquired absence of other specified parts of digestive tract; Z98.61 Coronary angioplasty status; Z79.82 Long term (current) use of aspirin; Z88.0 Allergy status to penicillin
CPT/HCPCS: 36415; 36416; 80048; 80053; 80306; 83605; 83735; 85025; 87040; J0696; J2405; J3475; J3490; J7050; Q0163

== ENCOUNTER 2019-03-06 20:18 | Emergency (ER) | payer OTHER ==
[2019-03-06 21:52] LABS: Hemoglobin 7.2 g/dL (12.0-16.0); Mean Corpuscular HGB CONC 32.1 g/dL (32.0-36.0); Mean Corpuscular Hemoglobin 34.5 pg (27.0-31.0); Mean Platelet Volume 8.5 fL (7.4-10.4); Platelet Count 141 thou/uL (130-400); RBC Distribution Width 17.5 % (11.5-14.5); Red Blood Cell (RBC) Count 2.09 mill/uL (4.20-5.40); White Blood Cell (WBC) Count 5.8 thou/uL (4.8-10.8)
[2019-03-06 21:56] LABS: PTT 26.9 SEC (22.9-36.1); Prothrombin Time 13.2 SEC (12.0-14.7)
[2019-03-06 22:06] LABS: #Lymphocytes 2.1 thou/uL (1.20-3.40); #Monocytes 0.6 thou/uL (0.11-0.59); %Basophils 0.2 % (0.0-1.0); %Eosinophils 0.2 % (0.0-10.0); %Lymphocytes 37.2 % (21.0-51.0); %Monocytes 9.5 % (0.0-10.0); %Neutrophils 52.9 % (42.0-75.0); Anisocytosis SLIGHT = 6-15 cells (100X) (0-5/hpf); MDiff Complete? YES; Macrocytosis SLIGHT = 6-15 cells (100X) (0-5/hpf)
[2019-03-06 22:13] LABS: ALT (SGPT) 11 U/L (8-55); AST (SGOT) 12 U/L (5-34); Albumin 3.3 g/dL (3.5-5.0); Alkaline Phosphatase 107 U/L (40-150); Anion Gap 10 mmol/L (10-20); BUN (Urea Nitrogen) 7 mg/dL (9.8-20.1); Bilirubin, Total 0.2 mg/dL (0.2-1.2); Calc. Creatinine Clearance 0 mL/min (70-130); Carbon Dioxide 29 mmol/L (22-29); Chloride 103 mmol/L (98-107); Estimated GFR-MDRD Greater than 90; Glucose 98 mg/dL (70-105); Potassium 3.4 mmol/L (3.5-5.1); Protein, Total 6.3 g/dL (6.0-8.3); Sodium 139 mmol/L (136-145)
[2019-03-06] MEDS ORDERED: Ketorolac Tromethamine 30 MG/ML VIAL ONE (22:53)
--- NOTE | 2019-03-10 14:05 | EKG ---
Test Reason : WEAKNESS Blood Pressure : / mmHG Vent. Rate : 099 BPM Atrial Rate : 099 BPM P-R Int : 130 ms QRS Dur : 076 ms QT Int : 344 ms P-R-T Axes : 059 053 053 degrees QTc Int : 441 ms Normal sinus rhythm Normal ECG Confirmed by GRISEL BANKS DO ([id number]), legal editor HENRY ROTHMAN ([id number] on 03/10/2019 2:04:43 PM Referred By: Confirmed By:GRISEL BANKS DO
== END 2019-03-06 22:50 | disposition home or self-care (01) ==
LOC: ERS 20:18
DX: D64.9 Anemia, unspecified (principal); G62.9 Polyneuropathy, unspecified; I10 Essential (primary) hypertension; I25.10 Atherosclerotic heart disease of native coronary artery without angina pectoris; F41.9 Anxiety disorder, unspecified; F17.210 Nicotine dependence, cigarettes, uncomplicated; E78.5 Hyperlipidemia, unspecified; M19.90 Unspecified osteoarthritis, unspecified site; I25.2 Old myocardial infarction; Z79.891 Long term (current) use of opiate analgesic; Z79.82 Long term (current) use of aspirin; Z79.899 Other long term (current) drug therapy
CPT/HCPCS: 36415; 80053; 83880; 84484; 85025; 85610; 85730; 86850; 86900; 86901; 93005; 96374; J1885

== ENCOUNTER 2019-03-24 12:43 | Inpatient (IN) | payer OTHER ==
--- NOTE | 2019-03-24 15:40 | RAD ---
THREE VIEWS OF THE LEFT FOOT: 03/24/19 COMPARISON: None. HISTORY: Left foot redness and swelling or the past two to four days. FINDINGS: Three views of the left foot shows no evidence of acute fracture or dislocation. No degenerative thomas ges are seen. Mild soft tissue swelling is seen. IMPRESSION: No evidence of acute osseous abnormality. POS: TPC
[2019-03-24] MEDS ORDERED: Morphine 4 MG/ML VIAL ONE (15:53)
[2019-03-24 15:59] LABS: #Lymphocytes 2.6 thou/uL (1.20-3.40); #Monocytes 1.3 thou/uL (0.11-0.59); #Neutrophils 5.5 thou/uL (1.40-6.50); %Basophils 0.4 % (0.0-1.0); %Eosinophils 0.3 % (0.0-10.0); %Lymphocytes 27.4 % (21.0-51.0); %Monocytes 13.8 % (0.0-10.0); %Neutrophils 58.1 % (42.0-75.0); Hemoglobin 8.3 g/dL (12.0-16.0); Mean Corpuscular HGB CONC 31.7 g/dL (32.0-36.0); Mean Corpuscular Hemoglobin 33.7 pg (27.0-31.0); Mean Platelet Volume 9.3 fL (7.4-10.4); Platelet Count 91 thou/uL (130-400); RBC Distribution Width 16.6 % (11.5-14.5); Red Blood Cell (RBC) Count 2.45 mill/uL (4.20-5.40); White Blood Cell (WBC) Count 9.5 thou/uL (4.8-10.8)
[2019-03-24 16:04] LABS: Anisocytosis SLIGHT = 6-15 cells (100X) (0-5/hpf); MDiff Complete? YES; Macrocytosis SLIGHT = 6-15 cells (100X) (0-5/hpf); Platelet Morphology Comment Appears Decreased; Polychromasia SLIGHT = 2-3 cells (100X) (0-2/hpf)
[2019-03-24 16:15] LABS: ALT (SGPT) 13 U/L (8-55); AST (SGOT) 14 U/L (5-34); Albumin 3.3 g/dL (3.5-5.0); Alkaline Phosphatase 163 U/L (40-150); Anion Gap 12 mmol/L (10-20); BUN (Urea Nitrogen) 9 mg/dL (9.8-20.1); Bilirubin, Total Less than 0.2 mg/dL (0.2-1.2); Calc. Creatinine Clearance 0 mL/min (70-130); Calcium 8.7 mg/dL (7.8-10.44); Carbon Dioxide 24 mmol/L (22-29); Chloride 108 mmol/L (98-107); Estimated GFR-MDRD Greater than 90; Globulin 2.8 g/dL (2.4-3.5); Glucose 90 mg/dL (70-105); Potassium 3.3 mmol/L (3.5-5.1); Protein, Total 6.1 g/dL (6.0-8.3); Sodium 141 mmol/L (136-145)
[2019-03-24] MEDS: Sodium Chloride 0.9% 1,000 ML IV SCH (19:24)
[2019-03-24] MEDS ORDERED: HYDROcodone/Acetaminophen 7.5/325 mg Tablet PO PRN (21:13)
[2019-03-24] MEDS ORDERED: Lorazepam 1 MG TAB PO PRN (21:14)
[2019-03-24] MEDS ORDERED: Magnesium Oxide 400 MG TAB PO SCH (21:15)
[2019-03-24] MEDS ORDERED: Ondansetron ODT 8 MG TAB PO PRN (21:15)
[2019-03-24] MEDS ORDERED: Loperamide HCl 2 MG CAP PO PRN (21:16)
[2019-03-25] MEDS: Sodium Chloride 0.9% 1,000 ML IV SCH (02:47)
[2019-03-25] MEDS: Morphine 4 MG/ML VIAL SLOW IVP PRN ×5 (05:40→21:48)
[2019-03-25] MEDS: Potassium Chloride 10 MEQ TAB PO SCH (08:46)
[2019-03-25] MEDS: Magnesium Oxide 400 MG TAB PO SCH ×2 (08:46→21:42)
[2019-03-25] MEDS: Aspirin 81 mg Enteric Coated Tablet PO SCH (08:46)
[2019-03-25] MEDS: Vancomycin HCl 1 GM in Premix Bag 1 BAG IVPB SCH ×2 (08:47→21:40)
[2019-03-25] MEDS: Potassium Chloride 20 MEQ TAB PO SCH ×2 (17:38→21:41)
[2019-03-25] MEDS: cefTRIAXone\\ROCEPHIN 1 GM in Sodium Chloride 0.9% 100 ML IVPB SCH (17:39)
[2019-03-25] MEDS: diphenhydrAMINE 25 MG CAP PO PRN (21:40)
--- NOTE | 2019-03-26 00:38 | CON ---
DATE OF CONSULTATION: REASON FOR CONSULTATION: Left foot cellulitis. HISTORY OF PRESENT ILLNESS: A 53-year-old whom I had seen in December with a history of coronary artery disease, breast cancer with lymph node metastases, who has been on chemotherapy with 50% reduction in the size of the mass since. She developed skin lesions with self excoriation in December. We felt that this represented pruritic sensation associated with chemotherapy with prurigo nodularis. This has subsided somewhat. The last chemo course was about a week and a half to 2 weeks ago, and now she presents with inflammatory process to left foot, quite painful, lateral aspect of the left foot extending pretty much from the heel all the way to the forefoot region. This has been present for the past 3 days before admission. Initial findings included BP 130/70, pulse 116, respirations 16, temperature 97.9, O2 saturation 96. She was chronically ill appearing. The left foot had erythema with a couple of blisters as described in the physical exam below. Initial findings included a white cell count 9.5, hemoglobin 8.3, MCV 106, platelets 91 with normal differential except for monocytosis. Sodium 141, creatinine 0.62. Transaminases normal, alkaline phosphatase 163, bilirubin normal, albumin 3.3. Thus far, blood cultures, no growth. She is awake, alert, and pleasant. Denies headaches. No sore throat, odynophagia, or dysphagia. No back pain. Still smoking intermittently. No abdominal pain. Voiding without difficulty. No diarrhea. No other joint symptoms. No neurological symptoms. PAST MEDICAL HISTORY: Coronary artery disease, myocardial infarction, breast cancer, T3 N1 M0, on chemotherapy through a port in the left subclavian position, the chemo includes trastuzumab, trastuzumab, and a third drug. SOCIAL HISTORY: Current smoker. History of methamphetamine and cocaine use in the past. ALLERGIES: PENICILLIN. FAMILY HISTORY: Noncontributory. CURRENT MEDICATIONS: 1. Ceftriaxone. 2. Imodium. 3. Ativan. 4. Magnesium. 5. Morphine. 6. Vancomycin. PHYSICAL EXAMINATION: VITAL SIGNS: Temperature normal. Other vital signs are not particularly remarkable. O2 sats are up to 100. GENERAL: Appears no distress, chronically ill appearing, alopecia, accessed left subclavian port. EXTREMITIES: Left foot with erythema extending from the heel all the way to the forefoot. There are 2 x 1 cm blisters, not yet punctured, but not tense either. There is marked tenderness around this area. No lymphadenopathy. HEENT: Ocular movements conjugate. Sclerae white. Pupils are equal. Conjunctivae somewhat pale. Oral cavity normal except for absence of a few teeth. NECK: Supple. No jugular venous distention. No carotid bruits. No thyromegaly. LUNGS: Symmetric. Clear breath sounds. HERAT: S1 and S2, regular rate. No S3 or S4. ABDOMEN: Soft, not distended or tender. No ascites. No bladder distention. NEUROLOGIC: No other joint inflammatory activity. Pulses 1+ in dorsalis pedis. Motion of the left foot is limited because of pain due to the inflammatory process. Other extremity strength is preserved. Cognitive function appears to be intact. LABORATORY DATA: Sodium 141, creatinine 0.62. Other labs as above. IMAGING DATA: Foot x-ray with no significant findings. ASSESSMENT: 1. Coronary artery disease. 2. Breast cancer, T3 N1 M0, on chemo through a report. 3. Left foot skin eruption with cellulitis and little blisters. PLAN: I have aspirated small amount of fluid from the blister from one of them in the left foot and submitted for cultures. I will switch her to Rocephin. Continue vancomycin. Beta-hemolytic streptococci are the more likely scenario here, although gram-negative rods are not ruled out. Staphylococcus aureus is less likely. Job ID: [id number]
[2019-03-26] MEDS: Morphine 4 MG/ML VIAL SLOW IVP PRN ×4 (05:56→22:22)
[2019-03-26 08:42] LABS: Hemoglobin 7.7 g/dL (12.0-16.0); Mean Corpuscular HGB CONC 30.8 g/dL (32.0-36.0); Mean Platelet Volume 8.4 fL (7.4-10.4); Platelet Count 73 thou/uL (130-400); RBC Distribution Width 16.9 % (11.5-14.5); Red Blood Cell (RBC) Count 2.32 mill/uL (4.20-5.40); White Blood Cell (WBC) Count 6.4 thou/uL (4.8-10.8)
[2019-03-26 08:58] LABS: Vancomycin, Trough 17.1 ug/mL
[2019-03-26 09:00] LABS: ALT (SGPT) 12 U/L (8-55); AST (SGOT) 13 U/L (5-34); Alkaline Phosphatase 133 U/L (40-150); Anion Gap 9 mmol/L (10-20); BUN (Urea Nitrogen) 5 mg/dL (9.8-20.1); Bilirubin, Total 0.2 mg/dL (0.2-1.2); Calc. Creatinine Clearance 85 mL/min (70-130); Calcium 9.1 mg/dL (7.8-10.44); Carbon Dioxide 28 mmol/L (22-29); Chloride 106 mmol/L (98-107); Estimated GFR-MDRD Greater than 90; Globulin 2.7 g/dL (2.4-3.5); Glucose 84 mg/dL (70-105); Potassium 3.9 mmol/L (3.5-5.1); Protein, Total 5.7 g/dL (6.0-8.3); Sodium 139 mmol/L (136-145)
[2019-03-26] MEDS: Vancomycin HCl 1 GM in Premix Bag 1 BAG IVPB SCH ×2 (09:21→21:53)
[2019-03-26] MEDS: Magnesium Oxide 400 MG TAB PO SCH ×2 (09:21→21:30)
[2019-03-26] MEDS: Potassium Chloride 10 MEQ TAB PO SCH (09:21)
[2019-03-26] MEDS: Aspirin 81 mg Enteric Coated Tablet PO SCH (09:21)
[2019-03-26 09:58] LABS: #Lymphocytes 1.9 thou/uL (1.20-3.40); #Monocytes 0.7 thou/uL (0.11-0.59); #Neutrophils 3.8 thou/uL (1.40-6.50); %Basophils 0.2 % (0.0-1.0); %Eosinophils 0.2 % (0.0-10.0); %Lymphocytes 30.2 % (21.0-51.0); %Monocytes 10.3 % (0.0-10.0); %Neutrophils 59.1 % (42.0-75.0)
[2019-03-26 09:59] LABS: Hypochromia SLIGHT = 6-15 cells (100X) (0-5/hpf); MDiff Complete? YES; Platelet Morphology Comment Appears Decreased; Polychromasia SLIGHT = 2-3 cells (100X) (0-2/hpf)
[2019-03-26] MEDS: diphenhydrAMINE 25 MG CAP PO PRN ×2 (10:35→21:53)
[2019-03-26 12:45] VITALS: BMI 22.1
[2019-03-26] MEDS: cefTRIAXone\\ROCEPHIN 1 GM in Sodium Chloride 0.9% 100 ML IVPB SCH (17:33)
[2019-03-27 06:55] LABS: #Lymphocytes 1.9 thou/uL (1.20-3.40); #Monocytes 0.6 thou/uL (0.11-0.59); #Neutrophils 3.7 thou/uL (1.40-6.50); %Basophils 0.3 % (0.0-1.0); %Eosinophils 0.2 % (0.0-10.0); %Lymphocytes 30.9 % (21.0-51.0); %Monocytes 9.2 % (0.0-10.0); %Neutrophils 59.4 % (42.0-75.0); Hemoglobin 7.8 g/dL (12.0-16.0); Mean Corpuscular HGB CONC 31.3 g/dL (32.0-36.0); Mean Corpuscular Hemoglobin 33.4 pg (27.0-31.0); Platelet Count 75 thou/uL (130-400); RBC Distribution Width 16.9 % (11.5-14.5); Red Blood Cell (RBC) Count 2.33 mill/uL (4.20-5.40); White Blood Cell (WBC) Count 6.2 thou/uL (4.8-10.8)
[2019-03-27 07:12] LABS: Anion Gap 10 mmol/L (10-20); BUN (Urea Nitrogen) 6 mg/dL (9.8-20.1); Calc. Creatinine Clearance 89 mL/min (70-130); Carbon Dioxide 29 mmol/L (22-29); Chloride 102 mmol/L (98-107); Estimated GFR-MDRD Greater than 90; Glucose 81 mg/dL (70-105); Potassium 3.8 mmol/L (3.5-5.1); Sodium 137 mmol/L (136-145)
--- NOTE | 2019-03-27 09:11 | HP ---
CHIEF COMPLAINT: Left foot swelling and pain. HISTORY OF PRESENT ILLNESS: Ms. Harper is a 53-year-old female with past medical history of stage III breast cancer, on chemo, hypertension, hyperlipidemia, came with swelling in the foot noticed 3 days ago. The patient stated that swelling was getting worse, getting more swollen, red, and painful, also noticed blisters. The last chemo was on 13 of March. The patient goes to [facility] in [place]. The patient states she did not have any fever. No chest pain. No shortness. No nausea or vomiting. In the ER, the patient was evaluated and found to have possible cellulitis of left foot. She was given a dose of vancomycin and admitted for further evaluation and management. PAST MEDICAL HISTORY: 1. Stage III breast cancer, on chemo. 2. Hypertension. 3. Hyperlipidemia. 4. Anxiety disorder. 5. Arthritis. 6. History of brain aneurysm. 7. History of acute ND. PAST SURGICAL HISTORY: 1. Status post appendectomy. 2. Status post left wrist surgery. 3. Status post cardiac stent. CURRENT MEDICATIONS: The patient is on; 1. Zofran p.r.n. 2. [place] 7.5/325 q.6 hours p.r.n. 3. Aspirin 81 mg. 4. Lunesta 1 mg at bedtime. 5. Hydrochlorothiazide 25 mg daily. 6. Loperamide 2 mg p.r.n. 7. Lorazepam 1 mg once a day p.r.n. 8. KCl 10 mEq daily. ALLERGIES: PENICILLIN. FAMILY HISTORY: Nothing contributory. SOCIAL HISTORY: The patient lives with family. No history of smoking. REVIEW OF SYSTEMS: CARDIOVASCULAR: No chest pain or shortness of breath. RESPIRATORY: No cough or fever. GASTROINTESTINAL: No nausea or vomiting. CENTRAL NERVOUS SYSTEM: No headache, no dizziness. PHYSICAL EXAMINATION: GENERAL: The patient is alert, awake, and oriented x3. VITAL SIGNS: Temperature 98, pulse 99, respirations 20, blood pressure 116/60. HEENT: Head is normocephalic, atraumatic. Pupils are equal and reactive. Nasopharynx is pale and dry. Hard and soft palate, no lesions. SKIN: Turgor decreased. NECK: Supple. No JVD. LUNGS: Bilateral air entry. No rales. No rhonchi. HEART: S1 and S2 regular. ABDOMEN: Soft. No tenderness. Normal bowel sounds. RECTAL: Deferred. CENTRAL NERVOUS SYSTEM: No focal deficits. EXTREMITIES: Left foot is markedly swollen. Erythema is warm to touch. She is tender. LABORATORY DATA: CBC shows WBC 9.5, hemoglobin 8.3, hematocrit 26, platelets 91. Metabolic panel; sodium 140, potassium 3.3, chloride 108, CO2 of 24, BUN of 29, creatinine 0.7, glucose 90. Foot x-ray is negative. ASSESSMENT: 1. Cellulitis, left foot. 2. History of breast cancer stage III, on chemo. 3. Hypokalemia. 4. Hypertension. 5. Coronary artery disease, status post stent. 6. Anemia. PLAN: 1. Vital signs q.4 hours. 2. Activity, as tolerated. 3. Allergies, penicillin. 4. Hep-Lock. 5. Diet, regular. 6. Vancomycin 1 g IV piggyback q.12 hours. 7. Rocephin 1 g IV piggyback daily. 8. Continue home medications. 9. Morphine p.r.n. 10. ID consult, we will follow the cultures. Job ID: [id number]
[2019-03-27] MEDS: Vancomycin HCl 1 GM in Premix Bag 1 BAG IVPB SCH (10:00)
[2019-03-27] MEDS: Magnesium Oxide 400 MG TAB PO SCH ×2 (10:03→20:01)
[2019-03-27] MEDS: Aspirin 81 mg Enteric Coated Tablet PO SCH (10:03)
[2019-03-27] MEDS: Potassium Chloride 10 MEQ TAB PO SCH (10:03)
[2019-03-27] MEDS: Morphine 4 MG/ML VIAL SLOW IVP PRN ×3 (10:06→19:59)
[2019-03-27] MEDS: cefTRIAXone\\ROCEPHIN 1 GM in Sodium Chloride 0.9% 100 ML IVPB SCH (17:37)
--- NOTE | 2019-03-27 17:37 | PRG ---
DATE OF SERVICE: 03/27/2019 SUBJECTIVE: Feeling better. Less pain in the left foot. No respiratory symptoms or abdominal pain. No diarrhea. OBJECTIVE: VITAL SIGNS: Vital signs are normal. GENERAL: Chronically ill appearing, but no acute distress. Oriented. LUNGS: Clear. HEART: S1 and S2, regular rate. ABDOMEN: Soft, not distended. EXTREMITIES: Left foot with marked reduction of inflammatory changes. A few blisters are till there. Still [id number] tenderness, but less than before. LABORATORY DATA: White cell count 6.2, hemoglobin 7.8, platelets 75,000, 59% neutrophils. Sodium 137 and creatinine 0.58. Liver profile normal. Blood culture, no growth. Culture from the blister fluid, no growth thus far. Gram stain, no organisms seen. ASSESSMENT AND DISCUSSION: Coronary artery disease; breast cancer, T3N1M0, on chemo; and left foot skin cellulitis with blisters. Staphylococcus aureus infection is less likely in view of the results of the Gram stain from the blister fluid and a negative cultures thus far. We will go ahead and discontinue vancomycin. Continue Rocephin alone. Job ID: [id number]
[2019-03-28] MEDS: Magnesium Oxide 400 MG TAB PO SCH ×2 (08:24→19:35)
[2019-03-28] MEDS: Aspirin 81 mg Enteric Coated Tablet PO SCH (08:24)
[2019-03-28] MEDS: Morphine 4 MG/ML VIAL SLOW IVP PRN ×2 (08:24→14:02)
[2019-03-28] MEDS: Potassium Chloride 10 MEQ TAB PO SCH (08:24)
[2019-03-28] MEDS: diphenhydrAMINE 25 MG CAP PO PRN (14:02)
[2019-03-28] MEDS ORDERED: diphenhydrAMINE 25 MG CAP PO PRN (16:04)
[2019-03-28] MEDS ORDERED: HYDROcodone/Acetaminophen 5/325 mg Tablet PO PRN ×2 (16:05→19:48)
[2019-03-28] MEDS: cefTRIAXone\\ROCEPHIN 1 GM in Sodium Chloride 0.9% 100 ML IVPB SCH (16:33)
[2019-03-29 08:56] VITALS: BP 105/59; TEMP 97.4
[2019-03-29] MEDS: Potassium Chloride 10 MEQ TAB PO SCH (09:48)
[2019-03-29] MEDS: Aspirin 81 mg Enteric Coated Tablet PO SCH (09:48)
[2019-03-29] MEDS: Magnesium Oxide 400 MG TAB PO SCH (09:48)
== END 2019-03-29 13:10 | disposition home or self-care (01) | DRG 603 ==
LOC: ERS 12:43 → ONC 16:30 → OBSVTOIN 16:30 → ONC 18:39
PROVIDERS: ADMIT Internal Medicine; ATTEND Internal Medicine
DX: L03.116 Cellulitis of left lower limb (principal); F41.9 Anxiety disorder, unspecified; E78.5 Hyperlipidemia, unspecified; C50.919 Malignant neoplasm of unspecified site of unspecified female breast; M19.90 Unspecified osteoarthritis, unspecified site; D63.1 Anemia in chronic kidney disease; F17.210 Nicotine dependence, cigarettes, uncomplicated; I10 Essential (primary) hypertension; I25.10 Atherosclerotic heart disease of native coronary artery without angina pectoris; Z90.49 Acquired absence of other specified parts of digestive tract; Z95.5 Presence of coronary angioplasty implant and graft; I25.2 Old myocardial infarction; Z88.0 Allergy status to penicillin
CPT/HCPCS: 80048; 80053; 80202; 83605; 85025; 87040; 87070; 87205; 96365; 96366; 96375; J0696; J1642; J2270; J3370; J3490; Q0163

== ENCOUNTER 2022-05-20 14:04 | Outpatient (CLI) | payer OTHER | END 2022-05-20 14:05 | disposition home or self-care (01) | LOC: BICMAMMO 14:04 | PROVIDERS: ATTEND Family Medicine | DX: C50.911 Malignant neoplasm of unspecified site of right female breast (principal) | CPT/HCPCS: 77066; G0279 ==

== ENCOUNTER 2022-05-28 14:15 | Emergency (ER) | payer OTHER ==
[2022-05-28 15:23] LABS: Hemoglobin 12.7 g/dL (12.0-16.0); Mean Corpuscular HGB CONC 32.5 g/dL (32.0-36.0); Mean Corpuscular Hemoglobin 32.8 pg (27.0-31.0); Mean Platelet Volume 6.8 fL (7.4-10.4); Platelet Count 236 thou/uL (130-400); RBC Distribution Width 11.2 % (11.5-14.5); Red Blood Cell (RBC) Count 3.86 mill/uL (4.20-5.40); White Blood Cell (WBC) Count 4.8 thou/uL (4.8-10.8)
[2022-05-28 15:43] LABS: Band 5 % (5-11); Eosinophils 2 % (0-10); Lymphocytes 33 % (21-51); MDiff Complete? YES; Monocytes 8 % (0-10); Neutrophil 52 % (42-75); Platelet Morphology Comment Appears Adequate; RBC Morphology Normal
[2022-05-28 15:52] LABS: ALT (SGPT) 35 U/L (8-55); AST (SGOT) 34 U/L (5-34); Albumin 4.1 g/dL (3.5-5.0); Alkaline Phosphatase 85 U/L (40-110); Anion Gap 12 mmol/L (10-20); BUN (Urea Nitrogen) 10 mg/dL (9.8-20.1); Bilirubin, Total 0.3 mg/dL (0.2-1.2); Calc. Creatinine Clearance 0 mL/min (70-130); Calcium 9.2 mg/dL (7.8-10.44); Carbon Dioxide 26 mmol/L (22-29); Chloride 102 mmol/L (98-107); Estimated GFR 94; Globulin 3.1 g/dL (2.4-3.5); Glucose 103 mg/dL (70-105); Lipase 25 U/L (8-78); Potassium 3.4 mmol/L (3.5-5.1); Protein, Total 7.2 g/dL (6.0-8.3); Sodium 137 mmol/L (136-145)
[2022-05-28] MEDS ORDERED: Acetaminophen 500 MG TAB ONE (16:00)
[2022-05-28] MEDS ORDERED: Metoclopramide HCl 10 MG/2 ML VIAL ONE (16:00)
[2022-05-28] MEDS ORDERED: diphenhydrAMINE 50 MG/ML VIAL ONE (16:00)
[2022-05-28] MEDS ORDERED: Ketorolac Tromethamine 30 MG/ML VIAL ONE (16:57)
[2022-05-28 17:12] LABS: SARS-CoV-2 NAA Rapid Test DETECTED (NotDetected)
[2022-05-28 17:15] LABS: Bacteria/HPF 4+ HPF (None Seen); Bilirubin Negative (Negative); Blood, Urine 3+ (Negative); Clarity Turbid (Clear); Glucose, Urine (Dipstick) Normal (Negative); Ketone, Urine Negative (Negative); Leukocyte 75 Leu/uL (Negative); Nitrite 2+ (Negative); Protein, Urine (Dipstick) 20 mg/dL (Neg-Trace); RBC/HPF 21-50 HPF (0-3); Squamous Epithelial 0-3 HPF (0-3); Urobilinogen Normal mg/dL (Less than 2)
== END 2022-05-28 17:40 | disposition home or self-care (01) ==
LOC: ERS 14:15
DX: U07.1 COVID-19 (principal); N39.0 Urinary tract infection, site not specified; E78.5 Hyperlipidemia, unspecified; I25.2 Old myocardial infarction; I10 Essential (primary) hypertension; F17.210 Nicotine dependence, cigarettes, uncomplicated; Z85.3 Personal history of malignant neoplasm of breast
CPT/HCPCS: 36415; 70450; 71045; 80053; 81003; 81015; 83605; 83690; 84484; 85025; 93005; 96361; 96374; 96375; J1200; J1885; J2765

== ENCOUNTER 2023-05-28 11:46 | Outpatient (CLI) | payer OTHER | END 2023-05-28 11:47 | disposition home or self-care (01) | LOC: PET 11:46 | PROVIDERS: ATTEND Surgery Surgical Oncology | DX: D50.9 Iron deficiency anemia, unspecified (principal); D52.9 Folate deficiency anemia, unspecified; C50.919 Malignant neoplasm of unspecified site of unspecified female breast; N63.10 Unspecified lump in the right breast, unspecified quadrant; R23.4 Changes in skin texture | CPT/HCPCS: 78815; A9552 ==

== ENCOUNTER 2023-06-02 14:15 | Outpatient (CLI) | payer OTHER | END 2023-06-02 14:16 | disposition home or self-care (01) | LOC: BICMAMMO 14:15 | DX: C50.411 Malignant neoplasm of upper-outer quadrant of right female breast (principal); D50.9 Iron deficiency anemia, unspecified; D52.9 Folate deficiency anemia, unspecified; N63.15 Unspecified lump in the right breast, overlapping quadrants; N64.59 Other signs and symptoms in breast; R92.1 Mammographic calcification found on diagnostic imaging of breast; R59.0 Localized enlarged lymph nodes | CPT/HCPCS: 77066; G0279 ==

== ENCOUNTER → 2023-07-07 | Day surgery (SDC) | payer OTHER | LOC: BICULT 12:59 | PROVIDERS: ATTEND Internal Medicine | PROC: 0H9T0ZX Drainage of Right Breast, Open Approach, Diagnostic (ICD-10-PCS; principal; 2023-07-07) | PROC: 07B50ZX Excision of Right Axillary Lymphatic, Open Approach, Diagnostic (ICD-10-PCS; principal; 2023-07-07) | DX: C50.811 Malignant neoplasm of overlapping sites of right female breast (principal); Z17.1 Estrogen receptor negative status [ER-] | CPT/HCPCS: 19083; 38505; 88305; 88341; 88342 ==